=== PATIENT | female | born 1975 ===

== ENCOUNTER 2022-12-03 09:07 | Outpatient (AMB) | payer OTHER, SELFPAY ==
[2022-12-03 09:20] VITALS: BP 112/60; PULSE 71; TEMP 36.9; O2SAT 99; BMI 30.1
--- NOTE | 2022-12-03 09:20 | A.OFFPC_ITS ---
Vital Signs 12/03/22 09:20 Height 5 ft 3 in Weight 170 lb BMI 30.1 BP 112/60 Blood Pressure Location Lt brachial Position Sitting Pulse 71 Pulse Source Pulse Oximeter Temp 98.4 F Temp Source Oral Pulse Oximetry (%) 99 Oxygen Delivery Method Room Air Intake Visit Reasons: New patient-requesting physical Intake Note: Patient is a new patient, and would like to discuss colonoscopy. Allergies Sulfa (Sulfonamide Antibiotics) Allergy (Unknown, Verified 12/03/22 09:46) Unknown Medication List - Last Reconciled 12/03/22 by Lashaun Taylor CNP No Known Home Meds Tobacco use date assessed: 12/03/22 Dental Screening Dental Screen Date: 12/03/22 Did you have a dental visit in the last 12 months?: No Did you have a dental problem in the last 6 months where you did not have access to dental care?: No Was dental information given to patient?: No HPI HPI Comments History of Present Illness Details 46-year-old female presents to critical access hospital care She was last evaluated by her former PCP 8 years ago. She notes she had routine blood work done 4 years ago She reports history of seasonal depression for which she was on Wellbutrin. 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 She states she also gets depressed during the winter months. She requests to resume Wellbutrin. She admits to exercising routinely and maintaining healthy diet. Not on prescription medications No acute symptoms today She states she is followed by [facility]; her last pap smear test was July 2022: normal He notes her last mammogram and left breast biopsy was 2022: normal. She has a f/u appointment in March 2023 She states she has not had colonoscopy and requests referral for this. FH: Father: prediabetes, HTN, bladder and prostate cancer Mother: HTN, osteoporosis MGM: of breast cancer [facility] Surgical History (Updated 12/03/22 @ 09:26 by Lorena Cartagena CMA) H/O breast biopsy Family History (Updated 12/03/22 @ 09:29 by Lorena Cartagena CMA) Father Bladder cancer Prostate cancer Maternal Grandmother Breast cancer Social History (Updated 12/03/22 @ 09:31 by Lorena Cartagena CMA) Household Members: Spouse Housing: House Alcohol intake: former Patient Tobacco Use Status: Former Tobacco user e-Cigarette/Vaping Use: Never Used Special lanette needs: No service: No Current occupational status: employed Current occupation: relator Cognitive needs: No Hearing needs: No Vision needs: No Questionnaire PHQ-9 Over the last 2 weeks, how often have you been bothered by any of the following problems? 1. Little interest or pleasure in doing things: not at all 2. Feeling down, depressed, or hopeless: not at all 3. Trouble falling or staying asleep, or sleeping too much: not at all 4. Feeling tired or having little energy: not at all 5. Poor appetite or overeating: not at all 6. Feeling bad about yourself - or that you are a failure or have let yourself or your family down: not at all 7. Trouble concentrating on things, such as reading the newspaper or watching television: not at all 8. Moving or speaking so slowly that other people could have noticed. Or the opposite - being so fidgety or restless that you have been moving around a lot more than usual: not at all 9. Thoughts that you would be better off or of hurting yourself in some way: not at all Total score: 0 Depression Screening Interpretation: Negative Source: Developed by Drs. Bud Jimenez, Isabel Munoz, Ilan Hamilton and colleagues, with an educational azucena from [employer]. Thrive Questionnaire I am a: Patient What is your living situation today?: I have a steady place to live Within the past 12 months, did the food you bought not last and you didn't have the money to get more?: Never true Within the past 12 months, did you worry whether your food would run out before you got money to buy more?: Never true Do you have trouble paying for medicines?: No Do you have trouble getting transportation to medical appointments?: No Do you have trouble paying your heating and electricity bill?: No Do you have trouble taking care of your child, family member or friend?: No Do you have trouble with day-to-day activities such as bathing, preparing meals, shopping, managing finances, etc.?: No Are you currently unemployed and looking for a job?: No Are you interested in more education?: No AUDIT C Alcohol Use Questionnaire (AUDIT-C) 1. How often do you have a drink containing alcohol?: Never 3. How often do you have six or more drinks on one occasion?: Never Total Score: 0 NINOSKA-7 AMB Questionnaire NINOSKA-7 Feeling nervous, anxious, or on edge: 0 = Not at all Not being able to stop or control worryin = Not at all Worrying too much about different things: 0 = Not at all Trouble relaxin = Not at all Being so restless that it is hard to sit still: 0 = Not at all Becoming easily annoyed or irritable: 0 = Not at all Feeling afraid as if something awful might happen: 0 = Not at all Total NINOSKA-7 score (0-4 normal; 5-9 mild; 10-14 moderate; 15-21 severe): 0 Source: Developed by Drs. Bud Jimenez, Isabel Munoz, Ilan Hamilton and colleagues, with an educational azucena from [employer]. ACT Questionnaire In the past 4 weeks, how much of the time did your asthma keep you from getting as much done at work, school or at home?: None of the time During the past 4 weeks, how often have you had shortness of breath?: Not at all During the past 4 weeks, how often did your asthma symptoms wake you up at night or earlier than usual in the morning?: Not at all During the past 4 weeks, how often have you had to use your rescue inhaler or nebulizer medication?: Not at all How would you rate your asthma control during the past 4 weeks?: Completely controlled Score: 25 Review of Systems Const Details: Denies chills, Denies fatigue, Denies fever(s), Denies headache(s) and Denies weakness HEENT Denies change in vision, Denies dizziness, Denies headache(s), Denies hearing loss, Denies nasal congestion, Denies sinus pain, Denies sinus pressure and Denies sore throat Card Denies chest pain, Denies lightheadedness, Denies dyspnea and Denies other (palpitations) Resp Denies cough, Denies dyspnea and Denies wheezing GI Denies abdominal pain, Denies melena, Denies hematochezia, Denies change in bowel habits, Denies dyspepsia and Denies nausea Denies hematuria and Denies dysuria Musc Denies abnormal gait, Denies myalgias, Denies arthralgias, Denies numbness and Denies tingling Skin/Breast Denies rash, Denies unusual bruising and Denies wounds Neuro Denies abnormal gait, Denies dizziness, Denies headache(s), Denies memory loss, Denies numbness, Denies Sensory deficit (Neuro), Denies tingling and Denies weakness Psych Denies anxiety, Denies depression and Denies memory loss Endo Denies cold intolerance, Denies fatigue, Denies heat intolerance, Denies polydipsia and Denies polyuria Saroj/Lymph Denies easy bleeding and Denies easy bruising Aller/Immun Denies wheezing Physical exam (Primary Care) Vital Signs: Last Vital Signs Temp 98.4 F 12/03/22 09:20 Pulse 71 12/03/22 09:20 BP 112/60 12/03/22 09:20 Pulse Ox 99 12/03/22 09:20 Oxygen Delivery Method Room Air 12/03/22 09:20 Tobacco/Smoking Status: Tobacco use Status Tobacco use date assessed 12/03/22 12/03/22 09:40 Patient Tobacco Use Status Former Tobacco user 12/03/22 09:40 e-Cigarette/Vaping Use Never Used 12/03/22 09:40 PHQ-9: PHQ-9 Score PHQ-9: Total score 0 12/03/22 09:49 Depression Screening Interpretation: Negative Const Other: General: no acute distress, well developed, alert and awake Nutritional Appearance: well nourished Orientation/consciousness: patient oriented x3 HENMT Head: Yes normocephalic and Yes atraumatic Ears: hearing grossly normal bilaterally and TM's normal bilaterally General nose exam: Normal external nose present and Normal nares present Mouth: Normal oral and palatal mucosa present and moist mucous membranes Teeth and gingiva: dentition normal Throat: Yes oropharynx normal Eyes Pupils: Equal, round and reactive pupils present and Pupil accommodation reflex normal EOM: EOMs intact bilaterally Neck Neck: Yes normal visual inspection, Yes no lymphadenopathy and Yes trachea midline Thyroid: Thyroid normal Carotids: no bruits Lymphatic: no lymphadenopathy noted Chest Chest palpation & inspection: normal inspection of the chest Resp Effort & Inspection: normal respiratory effort Auscultation: clear to auscultation bilaterally Cardio Rate: regular rate Rhythm: regular rhythm Heart sounds: S1 normal heart sound present, S2 normal heart sound present, no gallops, no murmurs and no rubs Bruits: no abdominal aortic bruits and no carotid bruits GI Palpation (GI): No Abdominal aortic bruit present, Soft to palpation, nontender, No hepatosplenomegaly present and No Rebound tenderness present Auscultation: normal bowel sounds General: Yes no CVA tenderness Back/Spine/Pelvis Back: no CVA tenderness Cervical Spine: cervical ROM normal and No Cervical spine tenderness Thoracic/Lumbar Spine: thoraco-lumbar ROM normal, No pain with thoraco-lumbar ROM, No thoracic spinal tenderness and No lumbar spinal tenderness Skin General: warm and dry. Normal skin color. Normal skin turgor Lesions: no lesions Rashes: no rashes Trauma: no lacerations or abrasions Wounds: no wounds Nails: normal Neuro General: patient oriented x3, gait normal and CN's II-XI intact bilaterally Cranial nerves: Yes Equal, round and reactive pupils present Cognition (Neuro): normal cognition Gait exam (Neuro): Normal gait present Motor exam (neuro): 5/5 motor strength present throughout Sensory Exam: No Sensory deficit (Neuro) Deep tendon reflexes (DTR's): Right patellar reflex intensity grade: 2+ and Left patellar reflex intensity grade: 2+ Extrem General: Yes normal to inspection, No edema and No calf tenderness Psych Appearance: grossly normal Affect: normal affect Attitude: cooperative Thought process: Normal thought process present Assessment and Plan Assessment & Plan (1) Normal physical examination, routine: Code(s): Z00.00 - Encounter for general adult medical examination without abnormal findings Plan: No significant physical restrictions or limitations noted Encouraged to get fasting blood work done and schedule a telehealth visit for lab review Follow-up with concerns or symptoms Verbalized understanding and agreed with the plan. (2) Seasonal depression: Code(s): F33.8 - Other recurrent depressive disorders Plan: Reports history of seasonal depression for which she was on Wellbutrin. 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 She states she also gets depressed during the winter months. She requests to resume Wellbutrin. Wellbutrin ordered. Take as prescribed Routine exercise encouraged Follow-up with worsening or new symptoms Verbalized understanding and agreed with treatment plan. (3) Colon cancer screening: Code(s): Z12.11 - Encounter for screening for malignant neoplasm of colon Plan: She states she has not had colonoscopy and requests referral for this GI referral made (4) Laboratory tests ordered as part of a complete physical exam (CPE): Code(s): Z00.00 - Encounter for general adult medical examination without abnormal findings Plan: Fasting labs ordered as part of a complete physical exam. Advised to fast for at least 10 hours before getting labs drawn. May drink water Verbalized understanding and agreed with treatment plan. Orders: Orders Comprehensive [place]. Panel Fast Today Z00.00 - Encounter for general adult medical examination without abnormal findings Lipid Panel Today Z00.00 - Encounter for general adult medical examination without abnormal findings TSH reflex Free T4 Today Z00.00 - Encounter for general adult medical examination without abnormal findings Complete Blood Count Auto Diff Today Z00.00 - Encounter for general adult medical examination without abnormal findings UA CC w/rflx Micro + Cult Today Z00.00 - Encounter for general adult medical examination without abnormal findings Referrals Gastroenterology Referral Z00.00 - Encounter for general adult medical examination without abnormal findings, Z12.11 - Encounter for screening for malignant neoplasm of colon Medications: New bupropion HCl (Wellbutrin XL) 150 mg PO QAM 90 tabs 1RF 90 days Coding Level of Care Code New Pt Prev Care 40-64y(39836) Diagnoses Normal physical examination, routine Z00.00 Seasonal depression F33.8 Colon cancer screening Z12.11 Laboratory tests ordered as part of a complete physical exam (CPE) Z00.00
== END 2022-12-03 10:14 | disposition home or self-care (01) ==
PROVIDERS: PCP Nurse Practitioner Family; Visit Provider Nurse Practitioner Family
DX: Z00.00 Encounter for general adult medical examination without abnormal findings (principal); F33.8 Other recurrent depressive disorders; Z12.11 Encounter for screening for malignant neoplasm of colon
CPT/HCPCS: 99386

== ENCOUNTER 2022-12-10 10:24 | Outpatient (REF) | payer OTHER, SELFPAY ==
[2022-12-10 14:20] LABS: MANUAL DIFF FLAG NO
[2022-12-10 14:35] LABS: Basophils Percent Auto 0.4 % (0-2); Eosinophils Absolute Auto 0.1 X10*3/uL (0.0-0.4); Eosinophils Percent Auto 2.8 % (0-4); Hemoglobin 13.4 g/dl (12.0-16.0); Imm Gran Abs Auto 0.01 X10*3/uL (0.00-0.03); Imm Gran Pct Auto 0.2 % (0.0-0.4); Lymphocytes Absolute Auto 1.3 X10*3/uL (1.2-4.9); Lymphocytes Percent Auto 28.6 % (20-40); Mean Corpuscular HGB Conc 33.5 g/dl (31.0-35.0); Mean Corpuscular Hemoglobin 30.7 pg (27.0-33.0); Mean Corpuscular Volume 91.7 fL (80.0-98.0); Mean Platelet Volume 11.6 fL (9.4-12.3); Monocytes Absolute Auto 0.4 X10*3/uL (0.1-1.2); Monocytes Percent Auto 9.1 % (2-11); Neutrophils Absolute Auto 2.7 x10*3/uL (2.0-8.3); Neutrophils Percent Auto 58.9 % (45-73); Platelet Count 226 X10*3/uL (160-400); Red Blood Count 4.36 X10*6/uL (4.20-5.50); Red Cell Distribution Width 13.3 % (11.0-16.0); White Blood Count 4.6 X10*3/uL (4.8-10.8)
[2022-12-10 15:30] LABS: Alanine Aminotransferase 13 U/L (0-31); Albumin Level 3.9 g/dL (3.5-5.0); Alkaline Phosphatase 47 U/L (39-117); Anion Gap 9 (12-20); Aspartate Amino Transferase 16 U/L (5-31); Bilirubin Total 0.4 mg/dL (0.0-1.0); Blood Urea Nitrogen 8 mg/dL (9-16); Calcium 9.1 mg/dL (8.4-10.2); Carbon Dioxide 26 mmol/L (22-29); Chloride 106 mmol/L (96-108); Cholesterol 200 mg/dL; Estimated Glomerular Filt Rate > 60; Glucose Fasting 83 mg/dL (60-99); HDL Cholesterol 76 mg/dL; LDL Cholesterol Calculated 116 mg/dl; Potassium 4.1 mmol/L (3.3-5.1); Sodium 137 mmol/L (135-145); Total Protein 6.8 g/dL (6.5-8.0); Triglycerides 44 mg/dL
[2022-12-10 15:47] LABS: TSH reflex Free T4 1.51 uIU/mL (0.32-4.0)
== END 2022-12-10 10:25 | disposition home or self-care (01) ==
LOC: HO.WFDLDS 10:24
PROVIDERS: Visit Provider Nurse Practitioner Family
DX: Z00.00 Encounter for general adult medical examination without abnormal findings (principal)
CPT/HCPCS: 36415; 80053; 80061; 84443; 85025

== ENCOUNTER 2022-12-15 | Outpatient (REF) | payer OTHER, SELFPAY ==
[2022-12-16 12:01] LABS: Appearance Urine Clear; Color Urine Yellow; Glucose Urine UA Negative (Negative); Leukocyte Esterase Urine Negative (Negative); Nitrite Urine Negative (Negative); Specific Gravity - Urine 1.015 (1.005-1.025); Urine Blood Negative (Negative); Urine Ketones Trace mg/dL (Negative); Urine Protein Negative (Neg-Trace)
== END 2022-12-15 00:01 | disposition home or self-care (01) ==
LOC: HO.LNP
PROVIDERS: Visit Provider Nurse Practitioner Family
DX: Z00.00 Encounter for general adult medical examination without abnormal findings (principal)
CPT/HCPCS: 81003

== ENCOUNTER 2022-12-15 15:44 | Outpatient (AMB) | payer OTHER, SELFPAY ==
[2022-12-15 15:49] VITALS: BP 112/74; PULSE 70; RESP 16; TEMP 36.8; O2SAT 99; BMI 30.7
--- NOTE | 2022-12-15 15:49 | MHC.PC.OV ---
Vital Signs 12/15/22 15:49 Height 5 ft 3 in Weight 173 lb 8 oz BMI 30.7 BP 112/74 Blood Pressure Location Lt brachial Position Sitting Respiration 16 Pulse 70 Pulse Source Pulse Oximeter Temp 98.3 F Temp Source Oral Pulse Oximetry (%) 99 Oxygen Delivery Method Room Air Intake Visit Reasons: weight management Intake Note: Patient is here for weight management. Allergies Sulfa (Sulfonamide Antibiotics) Allergy (Unknown, Verified 12/15/22 16:10) Unknown Medication List - Last Reconciled 12/15/22 by Lashaun Talyor CNP bupropion HCl (Wellbutrin XL) 150 mg PO QAM 90 days Tobacco use date assessed: 12/15/22 Dental Screening Dental Screen Date: 12/15/22 Did you have a dental visit in the last 12 months?: Yes Did you have a dental problem in the last 6 months where you did not have access to dental care?: No Was dental information given to patient?: Patient declined HPI HPI Comments History of Present Illness Details 46-year-old female presents for weight management follow-up. Her goal is to lose 20 lb. No acute symptoms today. She denies history of pancreatitis or a personal or family history of medullary thyroid cancer or multiple endorcine neoplasia. PFSH Surgical History H/O breast biopsy Family History Father Bladder cancer Prostate cancer Maternal Grandmother Breast cancer Social History Household Members: Spouse Housing: House Alcohol intake: former Patient Tobacco Use Status: Former Tobacco user e-Cigarette/Vaping Use: Never Used Special lanette needs: No service: No Current occupational status: employed Current occupation: realtor Current occupational exposures/hazards: Yes Cognitive needs: No Hearing needs: No Vision needs: No Review of Systems Const Details: Const Denies chills, Denies fatigue, Denies fever(s), Denies headache(s) and Denies weakness ENT Denies dizziness and Denies headache(s) Card Denies chest pain, Denies lightheadedness, Denies dyspnea and Denies other (Palpitations) Resp Denies cough, Denies dyspnea, Denies wheezing and Denies other ( shortness of breath) GI Denies abdominal pain, Denies melena, Denies hematochezia, Denies change in bowel habits, Denies dyspepsia and Denies nausea Denies hematuria and Denies dysuria Musc Denies abnormal gait, Denies myalgias, Denies arthralgias, Denies numbness and Denies tingling Skin/Breast Denies rash, Denies unusual bruising and Denies wounds Neuro Denies abnormal gait, Denies dizziness, Denies headache(s), Denies memory loss, Denies numbness, Denies Sensory deficit (Neuro), Denies tingling and Denies weakness Psych Denies anxiety, Denies depression, Denies memory loss Endo Denies cold intolerance, Denies fatigue, Denies heat intolerance, Denies polydipsia and Denies polyuria Aller/Immun Denies wheezing Physical exam (Primary Care) Vital Signs: Last Vital Signs Temp 98.3 F 12/15/22 15:49 Pulse 70 12/15/22 15:49 Resp 16 12/15/22 15:49 BP 112/74 12/15/22 15:49 Pulse Ox 99 12/15/22 15:49 Oxygen Delivery Method Room Air 12/15/22 15:49 BMI result Body Mass Index 30.7 Tobacco/Smoking Status: Tobacco use Status Tobacco use date assessed 12/15/22 12/15/22 15:58 Patient Tobacco Use Status Former Tobacco user 12/15/22 15:58 e-Cigarette/Vaping Use Never Used 12/15/22 15:58 Const Other: General: no acute distress and well developed Nutritional Appearance: well nourished Orientation/consciousness: patient oriented x3 HENMT Head: Yes normocephalic and Yes atraumatic Eyes General: appearance normal, both eyes and all related structures Pupils: Equal, round and reactive pupils present EOM: EOMs intact bilaterally Resp Effort & Inspection: normal respiratory effort Auscultation: clear to auscultation bilaterally Cardio Rate: regular rate Rhythm: regular rhythm Heart sounds: S1 normal heart sound present, S2 normal heart sound present, no gallops, no murmurs and no rubs GI Palpation (GI): No Abdominal aortic bruit present, Soft to palpation, nontender, No hepatosplenomegaly present and No Rebound tenderness present Auscultation: normal bowel sounds General: Yes no CVA tenderness Back/Spine/Pelvis Back: no CVA tenderness Cervical Spine: cervical ROM normal and No Cervical spine tenderness Thoracic/Lumbar Spine: thoraco-lumbar ROM normal, No pain with thoraco-lumbar ROM, No thoracic spinal tenderness and No lumbar spinal tenderness Extrem General: Yes normal to inspection, No edema and No calf tenderness Skin General: warm and dry. Normal skin color. Normal skin turgor Lesions: no lesions Rashes: no rashes Trauma: no lacerations or abrasions Wounds: no wounds Nails: normal Neuro General: patient oriented x3, gait normal and no focal neuro deficit Cranial nerves: Yes Equal, round and reactive pupils present Cognition (Neuro): normal cognition Gait exam (Neuro): Normal gait present Sensory Exam: No Sensory deficit (Neuro) Psych Appearance: grossly normal Affect: normal affect Attitude: cooperative Thought process: Normal thought process present Results AMB Hemoglobin A1c AMB Hemoglobin A1c 5.3 % Last Edit by Nory Lee on 12/15/22 16:22 Assessment and Plan Assessment & Plan (1) Obesity (BMI 30.0-34.9): Code(s): E66.9 - Obesity, unspecified Plan: Her BMI today is 30.7 lb A1c is 5.3% today Semaglutide ordered for weight loss. Take as prescribed Healthy diet and routine exercise encouraged Follow-up in 1 month or return sooner with concerns or symptoms Verbalized understanding and agreed with treatment plan. Medications: New semaglutide (weight loss) (Wemonavharris) administer weeks 1 through 4 of therapy 0.25 mg (0.5 mL) subcut QWEEK 4 weeks 2 mL 0RF Coding Level of Care Code Est Pt Level 3 (08609) Diagnoses Obesity (BMI 30.0-34.9) E66.9 Time Spent (min) 25
== END 2022-12-15 16:22 | disposition home or self-care (01) ==
PROVIDERS: PCP Nurse Practitioner Family; Visit Provider Nurse Practitioner Family
DX: E66.9 Obesity, unspecified (principal); Z68.30 Body mass index [BMI] 30.0-30.9, adult
CPT/HCPCS: 83036; 99213

== ENCOUNTER 2022-12-30 13:08 | Outpatient (AMB) | payer OTHER, SELFPAY ==
--- OUTSIDE RECORDS SUMMARY | 2022-12-30 13:09 | XMS_ITS | Continuity of Care Document ---
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 Name Role Phone Herman Fischer DO Primary Care Physician Encounter [facility] Date(s): 09/09/22 - 10/30/[address] [id number] Attending Physician: Estelle Moyer CNM Admitting Physician: Estelle Moyer CNM Referring Physician: Estelle Moyer CNM Allergies, Adverse Reactions, Alerts Substance Reaction Severity Status sulfa drugs rash Active Immunizations Given and Recorded Vaccine Date Status Refusal Reason influenza virus vaccine, inactivated 04/24/16 Give n Medications 22 g x 1 1/2 inch needle 22 g x 1 1/2 inch needle, See Instructions, # 30 each, Refills 5, Tot. Refills 5, Maintenance, To use to inject Daily Progesterone, 10/05/18 14:39:37 EDT, Compound Start Date: 10/05/18 Status: Ordered 3 ml syringe with 18 g x 11/2 inch needle 3 ml syringe with 18 g x 11/2 inch needle, See Instructions, # 30 each, Refills 5, Tot. Refills 5, Maintenance, To use to draw up Progesterone, 10/05/18 14:40:04 EDT, Compound Start Date: 10/05/18 Status: Ordered Lovenox 40 mg/0.4 mL injectable solution = 40 mg, Subcutaneous Injection, Daily, # 30 each, 4 Refills, Maintenance, 10/26/18 12:43:30 EDT Start Date: 10/26/18 Status: Ordered Lupron Depot 3.75 mg intramuscular kit See Instructions, Intramuscular Every 28 days, # 1 kit, 3 Refills, Maintenance, 04/13/18 14:52:35 EST Start Date: 04/13/18 Status: Ordered Medrol 16 mg oral tablet 1 tablet = 16 mg, By Mouth, Daily at bedtime, Begin 10/20/if instructed to do so., # 4 tablet, 1 Refills, Maintenance, 10/05/18 14:42:15 EDT Start Date: 10/05/18 Status: Ordered Multivitamin Tablet ([id number]), 0 Refills, Maintenance, 11/05/16 14:25:20 Start Date: 11/05/16 Status: Ordered progesterone 50 mg/mL intramuscular solution = 50 mg, Intramuscular, Daily, # 3 vials, 5 Refills, Maintenance, 10/05/18 14:38:58 EDT Start Date: 10/05/18 Status: Ordered Vitamin D3 oral tablet 2 tablet = 800 International_Units, By Mouth, Daily, 0 Refills, Maintenance, 09/16/17 9:40:12 EDT Start Date: 09/16/17 Status: Ordered Vivelle-Dot 0.1 mg/24 hours twice weekly transdermal film, extended release See Instructions, Apply 4 patches and change QOD. Please refer to calendar., # 40 patch, 5 Refills, Maintenance, 10/05/18 14:38:16 EDT, Needs IRENE. Start Date: 10/05/18 Status: Ordered Problem List Condition Confirmation Course Effective Dates Status Health St atus Informant AMA (advanced maternal age) primigravida 35+ Confirmed Active Infertility, female Confirmed Active Social History Social History Type Response Smoking Status Former smoker; Other : Quit April 2015; entered on: 04/24/16 Sex Patient Care team information Care Team Personnel Name: Herman Fischer DO Position: Reference Physician Member Role: PCP Address: Address: [address] [facility] [place] [address]- Care Team Related Persons Name: KAMERON SCHULTZ Address: home [address] [place] [address]
--- NOTE | 2022-12-30 13:14 | A.OFFVIS_ITS ---
Intake Vital Signs 12/30/22 13:20 Height 5 ft 3 in Weight 173 lb BMI 30.6 BP 119/68 Blood Pressure Location Lt brachial Position Sitting Pulse 73 Intake Visit Reasons: Colonoscopy screening Intake Note: New consult for 1st pre colonoscopy screening. Patient denies any GI issues. Employment Service Specialist Required: No Accompanied by: Self / Same As Patient Allergies Sulfa (Sulfonamide Antibiotics) Allergy (Unknown, Verified 12/30/22 13:16) Unknown HPI HPI Comments History of Present Illness Details A 47 y/o female referred index screening- Good appetite Normal bowel pattern No Family hx- GI cancers No N/V/D- abdominal pain- fever or chills PFSH Surgical History H/O breast biopsy Family History Father Bladder cancer Prostate cancer Maternal Grandmother Breast cancer Social History Household Members: Spouse Housing: House Alcohol intake: former Patient Tobacco Use Status: Former Tobacco user e-Cigarette/Vaping Use: Never Used Special lanette needs: No service: No Current occupational status: employed Current occupation: realtor Current occupational exposures/hazards: Yes Cognitive needs: No Hearing needs: No Vision needs: No Review of Systems Const All systems reviewed & are unremarkable except as noted in HPI and below Card Denies chest pain and Denies dyspnea Resp Denies dyspnea GI Denies abdominal pain, Denies hematochezia, Denies change in bowel habits, Denies dyspepsia and Denies vomiting Physical Exam Vital Signs: Last Vital Signs Pulse 73 12/30/22 13:20 BP 119/68 12/30/22 13:20 BMI result Body Mass Index 30.6 Const General: cooperative, healthy appearing, comfortable and no acute distress Orientation/consciousness: patient oriented x3 Limitations: no limitations Eyes Sclerae: sclerae normal Resp Effort & Inspection: normal respiratory effort and able to speak in complete sentences Auscultation: clear to auscultation bilaterally, no crackles, no rales and no rhonchi Cardio Rate: regular rate Rhythm: regular rhythm Heart sounds: S1 normal heart sound present and S2 normal heart sound present GI Palpation (GI): Soft to palpation and nontender Auscultation: normal bowel sounds Skin General skin exam: no rashes or lesions noted and other (suntanned) Neuro General: patient oriented x3 Extrem General: Yes full ROM Psych Appearance: grossly normal and well kempt Mental Status: mental status grossly normal Speech and movement: Normal speech and movement present Affect: normal affect Attitude: cooperative Thought process: Normal thought process present Thought content: Normal thought content present Insight: Good insight present (Psych) Results Reviewed Results Reviewed: labs 12/10- Assessment & Plan Assessment & Plan (1) Colon cancer screening: Code(s): Z12.11 - Encounter for screening for malignant neoplasm of colon Plan: screening colon Plan Index screening colonoscopy MG prep Orders: Orders Colonoscopy - GI Use Only 12/30/22 Z12.11 - Encounter for screening for malignant neoplasm of colon Medications: New bisacodyl (Dulcolax (bisacodyl)) Take 4 tablets by mouth at 12:00pm the day before your procedure. 20 mg (4 x 5 mg) PO ONCE 1 day 4 tabs 0RF colonoscopy prep Z12.11 - Encounter for screening for malignant neoplasm of colon polyethylene glycol 3350 (Miralax) Take as directed by mouth the day before your procedure. 238 grams PO ONCE 1 day PRN 238 grams 0RF laxative effect Patient Instructions: A very pleasant 47 y/o female referred index screening colonoscopy- no Gi or general complaints. Index screening colonoscopy- discussed rare risks, need for escort and MG split prep lit given Encouraged to call with questions or concerns Coding Level of Care Code New Pt Level 3 (36076) Diagnoses Colon cancer screening Z12.11 Time Spent (min) 30
[2022-12-30 13:20] VITALS: BP 119/68; PULSE 73; BMI 30.6
== END 2022-12-30 14:00 | disposition home or self-care (01) ==
LOC: HO.HGIW 13:08
PROVIDERS: PCP Nurse Practitioner Family; Visit Provider Physician Assistant
DX: Z01.818 Encounter for other preprocedural examination (principal); Z12.11 Encounter for screening for malignant neoplasm of colon
CPT/HCPCS: 99203

== ENCOUNTER → 2022-12-30 13:08 | Outpatient (BNVA) | payer OTHER, SELFPAY | PROVIDERS: PCP Nurse Practitioner Family; Visit Provider Physician Assistant ==

== ENCOUNTER 2023-01-28 09:51 | Outpatient (AMB) | payer OTHER, SELFPAY ==
[2023-01-28 09:56] VITALS: BP 104/70; PULSE 80; RESP 12; TEMP 36.4; O2SAT 99; BMI 30.5
--- NOTE | 2023-01-28 09:56 | MHC.PC.OV ---
Vital Signs 01/28/23 09:56 Height 5 ft 3 in Weight 172 lb BMI 30.5 BP 104/70 Blood Pressure Location Lt brachial Position Sitting Respiration 12 Pulse 80 Pulse Source Pulse Oximeter Temp 97.5 F Temp Source Temporal Artery Scan Pulse Oximetry (%) 99 Oxygen Delivery Method Room Air Intake Visit Reasons: weight management Intake Note: Patient states that she hasnt gotten her Wegovy due to it being on back order. Patient states if there is something else she may get something as an alternative. Patient would also like to go over most recent blood work if there is time. Auxiliary Equipment Operator Required: No Accompanied by: Self / Same As Patient Allergies Sulfa (Sulfonamide Antibiotics) Allergy (Unknown, Verified 01/28/23 10:38) Unknown Medication List - Last Reconciled 01/28/23 by Lashaun Taylor CNP bisacodyl (Dulcolax (bisacodyl)) 20 mg (4 x 5 mg) PO ONCE 1 day bupropion HCl (Wellbutrin XL) 150 mg PO QAM 90 days polyethylene glycol 3350 (Miralax) 238 grams PO ONCE PRN 1 day semaglutide (weight loss) (Wegovy) 0.25 mg (0.5 mL) subcut QWEEK 4 weeks Tobacco use date assessed: 12/15/22 Dental Screening Dental Screen Date: 01/28/23 Did you have a dental visit in the last 12 months?: No Did you have a dental problem in the last 6 months where you did not have access to dental care?: No Was dental information given to patient?: Patient has dentist HPI HPI Comments History of Present Illness Details 47-year-old female presents for weight management follow-up. She was last seen in the office on 12/15/2022 for weight management. Semaglutide was prescribed. She notes she has not been taking the medication because it is back ordered. She is inquiring about a different with loss regimen. She denies acute symptoms at this time. [facility] Medical History No pertinent past medical history Surgical History H/O breast biopsy Family History Father Bladder cancer Prostate cancer Maternal Grandmother Breast cancer Social History Household Members: Spouse Housing: House Alcohol intake: former Patient Tobacco Use Status: Former Tobacco user e-Cigarette/Vaping Use: Never Used Special lanette needs: No service: No Current occupational status: employed Current occupation: realtor Current occupational exposures/hazards: Yes Cognitive needs: No Hearing needs: No Vision needs: No Review of Systems Const Details: Const Denies chills, Denies fatigue, Denies fever(s), Denies headache(s) and Denies weakness ENT Denies dizziness and Denies headache(s) Card Denies chest pain, Denies lightheadedness, Denies dyspnea and Denies other (Palpitations) Resp Denies cough, Denies dyspnea, Denies wheezing and Denies other ( shortness of breath) GI Denies abdominal pain, Denies melena, Denies hematochezia, Denies change in bowel habits, Denies dyspepsia and Denies nausea Denies hematuria and Denies dysuria Musc Denies abnormal gait, Denies myalgias, Denies arthralgias, Denies numbness and Denies tingling Skin/Breast Denies rash, Denies unusual bruising and Denies wounds Neuro Denies abnormal gait, Denies dizziness, Denies headache(s), Denies memory loss, Denies numbness, Denies Sensory deficit (Neuro), Denies tingling and Denies weakness Psych Denies anxiety, Denies depression, Denies memory loss Endo Denies cold intolerance, Denies fatigue, Denies heat intolerance, Denies polydipsia and Denies polyuria Aller/Immun Denies wheezing Physical exam (Primary Care) Vital Signs: Last Vital Signs Temp 97.5 F 01/28/23 09:56 Pulse 80 01/28/23 09:56 Resp 12 01/28/23 09:56 BP 104/70 01/28/23 09:56 Pulse Ox 99 01/28/23 09:56 Oxygen Delivery Method Room Air 01/28/23 09:56 BMI result Body Mass Index 30.5 Tobacco/Smoking Status: Tobacco use Status Tobacco use date assessed 12/15/22 01/28/23 10:03 Patient Tobacco Use Status Former Tobacco user 01/28/23 10:03 e-Cigarette/Vaping Use Never Used 01/28/23 10:03 Const Other: General: no acute distress and well developed Nutritional Appearance: well nourished Orientation/consciousness: patient oriented x3 [facility] Head: Yes normocephalic and Yes atraumatic Eyes General: appearance normal, both eyes and all related structures Pupils: Equal, round and reactive pupils present EOM: EOMs intact bilaterally Resp Effort & Inspection: normal respiratory effort Auscultation: clear to auscultation bilaterally Cardio Rate: regular rate Rhythm: regular rhythm Heart sounds: S1 normal heart sound present, S2 normal heart sound present, no gallops, no murmurs and no rubs GI Palpation (GI): No Abdominal aortic bruit present, Soft to palpation, nontender, No hepatosplenomegaly present and No Rebound tenderness present Auscultation: normal bowel sounds General: Yes no CVA tenderness Back/Spine/Pelvis Back: no CVA tenderness Cervical Spine: cervical ROM normal and No Cervical spine tenderness Thoracic/Lumbar Spine: thoraco-lumbar ROM normal, No pain with thoraco-lumbar ROM, No thoracic spinal tenderness and No lumbar spinal tenderness Extrem General: Yes normal to inspection, No edema and No calf tenderness Skin General: warm and dry. Normal skin color. Normal skin turgor Lesions: no lesions Rashes: no rashes Trauma: no lacerations or abrasions Wounds: no wounds Nails: normal Neuro General: patient oriented x3, gait normal and no focal neuro deficit Cranial nerves: Yes Equal, round and reactive pupils present Cognition (Neuro): normal cognition Gait exam (Neuro): Normal gait present Sensory Exam: No Sensory deficit (Neuro) Psych Appearance: grossly normal Affect: normal affect Attitude: cooperative Thought process: Normal thought process present Assessment and Plan Assessment & Plan (1) Obesity (BMI 30.0-34.9): Code(s): E66.9 - Obesity, unspecified Plan: She was prescribed semaglutide last month for weight loss. However, she has not been taking the medication due to nationwide on availability. Therefore, she has not lose any weight. She weighs 172 lb today, BMI is 30.5. She is on Wellbutrin for seasonal depressive symptoms. Informed that Wellbutrin may also form or weight loss. Advised to continue to take the medication as prescribed. Healthy diet and routine exercise encouraged Referred to edger tailer/dietitian and weight management Advised to inform her PCP if she is not contacted by edger tailer/dietitian or weight management within the next 2 week Recent labs reviewed with the patient. Lab results were unremarkable Advised to schedule a complete physical exam for next year Return with symptoms or concerns Verbalized understanding and agreed with treatment plan. Orders: Referrals Medical Weight Management Referral E66.9 - Obesity, unspecified Nutrition/Dietitian Referral E66.9 - Obesity, unspecified Coding Level of Care Code Est Pt Level 3 (13319) Diagnoses Obesity (BMI 30.0-34.9) E66.9
== END 2023-01-28 10:55 | disposition home or self-care (01) ==
PROVIDERS: PCP Nurse Practitioner Family; Visit Provider Nurse Practitioner Family
DX: E66.9 Obesity, unspecified (principal); Z68.30 Body mass index [BMI] 30.0-30.9, adult
CPT/HCPCS: 99213

== ENCOUNTER 2023-06-15 15:28 | Outpatient (AMB) | payer OTHER, SELFPAY ==
[2023-06-15 15:37] VITALS: BP 112/70; PULSE 75; RESP 13; TEMP 36.4; O2SAT 99; BMI 30.3
--- NOTE | 2023-06-15 15:37 | A.OFFPC_ITS ---
Vital Signs 06/15/23 15:37 06/15/23 16:03 06/15/23 16:06 06/15/23 16:09 Height 5 ft 3 in Weight 171 lb 2 oz BMI 30.3 BP 112/70 130/80 124/80 110/80 Blood Pressure Location Rt brachial Lt brachial Lt brachial Lt brachial Position Sitting Supine Sitting Standing Respiration 13 Pulse 75 Pulse Source Pulse Oximeter Temp 97.6 F Temp Source Temporal Artery Scan Pulse Oximetry (%) 99 Oxygen Delivery Method Room Air Intake Visit Reasons: dizzy spells Criminal Intelligence Analyst Required: No Accompanied by: self Allergies Sulfa (Sulfonamide Antibiotics) Allergy (Unknown, Verified 06/15/23 15:52) Unknown Medication List - Last Reconciled 06/15/23 by Lashaun Taylor CNP bisacodyl (Dulcolax (bisacodyl)) 20 mg (4 x 5 mg) PO ONCE 1 day bupropion HCl (Wellbutrin XL) 150 mg PO QAM 90 days polyethylene glycol 3350 (Miralax) 238 grams PO ONCE PRN 1 day Tobacco use date assessed: 06/15/23 Dental Screening Dental Screen Date: 06/15/23 Did you have a dental visit in the last 12 months?: Yes Did you have a dental problem in the last 6 months where you did not have access to dental care?: No Was dental information given to patient?: Patient has dentist HPI HPI Comments History of Present Illness Details 47-year-old female presents with complai nts of ?dizzy spell for the past 5 days. She notes spinning sensation and dizziness from lying to sitting or standing. Her symptoms are more pronounced when she is exercising at the gym. She also reports some lightheadedness. She states her symptoms coincided with her menstrual cycle which lasted 10 days instead of the usual 5-6 days. No pal pitations, chest pain, nausea, vomiting, or visual disturbances. No head injury or trauma. No acute symptoms at this time. [facility] Medical History Seasonal depression Surgical History H/O breast biopsy Family History (Updated 06/15/23 @ 15:44 by Alla Phipps MA) Father Bladder cancer Prostate cancer Maternal Grandmother Breast cancer Other Substance abuse Social History Household Members: Spouse Housing: House Alcohol intake: former Patient Tobacco Use Status: Former Tobacco user e-Cigarette/Vaping Use: Never Used Special lanette needs: No service: No Current occupational status: employed Current occupation: realtor Current occupational exposures/hazards: Yes Cognitive needs: No Hearing needs: No Vision needs: No Review of Systems Const Details: Const Denies chills, Denies fatigue, Denies fever(s), Denies headache(s) and Denies weakness ENT Denies dizziness and Denies headache(s) Card Denies chest pain, Denies lightheadedness, Denies dyspnea and Denies other (Palpitations) Resp Denies cough, Denies dyspnea, Denies wheezing and Denies other ( shortness of breath) GI Denies abdominal pain, Denies melena, Denies hematochezia, Denies change in bowel habits, Denies dyspepsia and Denies nausea Denies hematuria and Denies dysuria Musc Denies abnormal gait, Denies myalgias, Denies arthralgias, Denies numbness and Denies tingling Skin/Breast Denies rash, Denies unusual bruising and Denies wounds Neuro Denies abnormal gait, Denies dizziness, Denies headache(s), Denies memory loss, Denies numbness, Denies Sensory deficit (Neuro), Denies tingling and Denies weakness Psych Denies anxiety, Denies depression, Denies memory loss Endo Denies cold intolerance, Denies fatigue, Denies heat intolerance, Denies polydipsia and Denies polyuria Aller/Immun Denies wheezing Physical exam (Primary Care) Vital Signs: Last Vital Signs Temp 97.6 F 06/15/23 15:37 Pulse 75 06/15/23 15:37 Resp 13 06/15/23 15:37 BP 110/80 06/15/23 16:09 Pulse Ox 99 06/15/23 15:37 Oxygen Delivery Method Room Air 06/15/23 15:37 BMI result Body Mass Index 30.3 Tobacco/Smoking Status: Tobacco use Status Tobacco use date assessed 06/15/23 06/15/23 15:44 Patient Tobacco Use Status Former Tobacco user 06/15/23 15:44 e-Cigarette/Vaping Use Never Used 06/15/23 15:44 Const Other: General: no acute distress and well developed Nutritional Appearance: well nourished Orientation/consciousness: patient oriented x3 HENMT Head: Yes normocephalic and Yes atraumatic Eyes General: appearance normal, both eyes and all related structures Pupils: Equal, round and reactive pupils present EOM: EOMs intact bilaterally Resp Effort & Inspection: normal respiratory effort Auscultation: clear to auscultation bilaterally Cardio Rate: regular rate Rhythm: regular rhythm Heart sounds: S1 normal heart sound present, S2 normal heart sound present, no gallops, no murmurs and no rubs GI Palpation (GI): No Abdominal aortic bruit present, Soft to palpation, nontender, No hepatosplenomegaly present and No Rebound tenderness present Auscultation: normal bowel sounds General: Yes no CVA tenderness Back/Spine/Pelvis Back: no CVA tenderness Cervical Spine: cervical ROM normal and No Cervical spine tenderness Thoracic/Lumbar Spine: thoraco-lumbar ROM normal, No pain with thoraco-lumbar ROM, No thoracic spinal tenderness and No lumbar spinal tenderness Extrem General: Yes normal to inspection, No edema and No calf tenderness Skin General: warm and dry. Normal skin color. Normal skin turgor Neuro General: patient oriented x3, gait normal and no focal neuro deficit Cranial nerves: Yes Equal, round and reactive pupils present Cognition (Neuro): normal cognition Gait exam (Neuro): Normal gait present Sensory Exam: No Sensory deficit (Neuro) Psych Appearance: grossly normal Affect: normal affect Attitude: cooperative Thought process: Normal thought process present Assessment and Plan Assessment & Plan (1) Vertigo: Code(s): R42 - Dizziness and giddiness Plan: Reports spinning sensation and dizziness from lying to sitting or standing x 5 days Orthostatic hypotension from lying to standing Adequate hydration and diet encouraged Advised to change positions slowly from lying, sitting, and standing Will check CBC and CMP and make changes as needed Follow-up with worsening or new symptoms Verbalized understanding and agreed with treatment plan (2) Orthostatic hypotension: Code(s): I95.1 - Orthostatic hypotension Plan: As above Orders: Orders Complete Blood Count no Diff Today I95.1 - Orthostatic hypotension, R42 - Dizziness and giddiness Basic Metabolic Panel Today I95.1 - Orthostatic hypotension, R42 - Dizziness and giddiness Coding Level of Care Code Est Pt Level 4 (54931) Diagnoses Vertigo R42 Orthostatic hypotension I95.1
[2023-06-15 16:03] VITALS: BP 130/80
[2023-06-15 16:06] VITALS: BP 124/80
[2023-06-15 16:09] VITALS: BP 110/80
== END 2023-06-15 16:17 | disposition home or self-care (01) ==
PROVIDERS: PCP Nurse Practitioner Family; Visit Provider Nurse Practitioner Family
DX: R42 Dizziness and giddiness (principal); I95.1 Orthostatic hypotension
CPT/HCPCS: 99214

== ENCOUNTER 2023-06-16 12:18 | Outpatient (REF) | payer OTHER, SELFPAY ==
[2023-06-16 14:55] LABS: Hematocrit 38.4 % (37.0-47.0); Hemoglobin 12.7 g/dl (12.0-16.0); Mean Corpuscular HGB Conc 33.1 g/dl (31.0-35.0); Mean Corpuscular Hemoglobin 30.8 pg (27.0-33.0); Mean Platelet Volume 11.4 fL (9.4-12.3); Platelet Count 223 X10*3/uL (160-400); Red Blood Count 4.13 X10*6/uL (4.20-5.50); Red Cell Distribution Width 13.6 % (11.0-16.0); White Blood Count 5.5 X10*3/uL (4.8-10.8)
[2023-06-16 15:41] LABS: Anion Gap 9 (12-20); Blood Urea Nitrogen 8 mg/dL (9-16); Calcium 9.1 mg/dL (8.4-10.2); Carbon Dioxide 27 mmol/L (22-29); Chloride 106 mmol/L (96-108); Estimated Glomerular Filt Rate > 60; Glucose Random 85 mg/dL (60-115); Sodium 138 mmol/L (135-145)
== END 2023-06-16 12:19 | disposition home or self-care (01) ==
LOC: HO.WFDLDS 12:18
PROVIDERS: Visit Provider Nurse Practitioner Family
DX: I95.1 Orthostatic hypotension (principal); R42 Dizziness and giddiness
CPT/HCPCS: 36415; 80048; 85027

== ENCOUNTER 2023-09-08 06:30 | Day surgery (SDC) | payer OTHER, SELFPAY ==
[2023-04-16 08:35] VITALS: BMI 30.6
--- NOTE | 2023-09-07 08:46 | HO.ANESPROP2 ---
Documented by User: Danica Keller NP 09/07/23 08:47 HPI - Anesthesia Eval Consult details Narrative: 47yo F for Colonoscopy PMFSH Active Problems Active Problems: All Active Problems Orthostatic hypotension (Acute) Vertigo (Acute) Obesity (BMI 30.0-34.9) (Acute) Seasonal depression (Acute) Normal physical examination, routine (Acute) Colon cancer screening (Acute) Laboratory tests ordered as part of a complete physical exam (CPE) (Acute) Past Medical History Medical History (Updated 09/04/23 @ 15:21 by Elly Mcmanus RN) Orthostatic hypotension Seasonal depression Family History Family History (Updated 06/15/23 @ 15:44 by ELIZABETH Yuen) Father Bladder cancer Prostate cancer Maternal Grandmother Breast cancer Other Substance abuse Surgical History Surgical History H/O breast biopsy Social History Social History Household Members: Spouse Housing: House Alcohol intake: former Patient Tobacco Use Status: Former Tobacco user e-Cigarette/Vaping Use: Never Used Use of substances other than those prescribed or required for medical reasons: No Special lanette needs: No Are you DNR?: No Advance Directives: No Advance Directives Information Provided: Yes service: No Current occupational status: employed Current occupation: realtor Current occupational exposures/hazards: Yes Cognitive needs: No Hearing needs: No Vision needs: No Meds Allergies Allergy/AdvReac Type Severity Reaction Status Date / Time Sulfa (Sulfonamide Allergy Unknown Unknown Verified 09/08/23 06:39 Antibiotics) Home Medications ?Medication ?Instructions ?Recorded ?Confirmed ?Last Taken ?Type No Known Home Meds 09/08/23 09/08/23 Unknown History Exam Height,Weight and Vital Signs: Height 5 ft 3 in Weight 78.471 kg Pertinent Lab Results Pertinent Lab Results: Laboratory Tests 06/16/23 12:18 WBC 5.5 Hgb 12.7 Hct 38.4 Plt Count 223 Sodium 138 Potassium 4.0 Chloride 106 Carbon Dioxide 27 BUN 8 L Creatinine 0.76 Assessment and Plan Assessment Anesthesia Assessment: Chart Reviewed Documented by User: Alan Ramirez MD 09/08/23 07:25 PMF Past Medical History Medical History (Updated 09/04/23 @ 15:21 by Elly Mcmanus RN) Orthostatic hypotension Seasonal depression Family History Family History (Updated 06/15/23 @ 15:44 by ELIZABETH Yuen) Father Bladder cancer Prostate cancer Maternal Grandmother Breast cancer Other Substance abuse Family history of problems with anesthesia: No Surgical History Surgical History H/O breast biopsy History of Problems with Anesthesia: No Social History Social History Household Members: Spouse Housing: House Alcohol intake: former Patient Tobacco Use Status: Former Tobacco user e-Cigarette/Vaping Use: Never Used Use of substances other than those prescribed or required for medical reasons: No Special lanette needs: No Are you DNR?: No Advance Directives: No Advance Directives Information Provided: Yes service: No Current occupational status: employed Current occupation: realtor Current occupational exposures/hazards: Yes Cognitive needs: No Hearing needs: No Vision needs: No Meds Allergies Allergy/AdvReac Type Severity Reaction Status Date / Time Sulfa (Sulfonamide Allergy Unknown Unknown Verified 09/08/23 06:39 Antibiotics) Home Medications ?Medication ?Instructions ?Recorded ?Confirmed ?Last Taken ?Type No Known Home Meds 09/08/23 09/08/23 Unknown History Exam Airway Mallampati Class: II TM Dist: >3cm Neck ROM: Full Loose/Missing/Broken Teeth: No Heart: rrr Lungs: cta Assessment and Plan Assessment Anesthesia Assessment: Anesthesia Plan Discussed Final Anesthetic Review Family History of Problems with Anesthesia: No History of Problems with Anesthesia: No NPO: Yes ASA Class: II Final Preanesthetic Review: No Changes in Pt Med Stat, Meds/Allgs Chart Reviewed, Consent Obtained/Reviewed and Anes Risks/Benef Reviewed Patient Risk: Intermediate Procedure Risk: Intermediate Anesthetic Plan Anesthetic Plan: MAC: Disposition: Standard PACU
--- OUTSIDE RECORDS SUMMARY | 2023-09-08 06:32 | XMS_ITS | Continuity of Care Document ---
Author Organization [facility] ter Address [address] [place] [id number]- Care Team Providers Care Buffing Wheel Former Machine Name Role Phone Herman Fischer DO Primary Care Physician Encounter [facility] [place] Date(s): 12/19/22 - 04/29/[address] [id number] Attending Physician: Lashaun Taylor NP Admitting Physician: Lashaun Taylor NP Referring Physician: Lashaun Taylor NP Allergies, Adverse Reactions, Alerts Substance Reaction Severity [...] mg, By Mouth, Daily at bedtime, Begin 10/20/ instructed to do so., # 4 tablet, 1 Refills, Maintenance, 10/05/18 14:42:15 EDT Start Date: 10/05/18 Status: Ordered Multivitamin Tablet ([id number]), 0 Refills, Maintenance, 11/05/16 14:25:20 Start Date: [...] Physician Member Role: PCP Address: Address: [address] [facility] [place] [address]- Care Team Related Persons Name: KAMERON SCHULTZ Address: [address] [place] [address]
--- OUTSIDE RECORDS SUMMARY | 2023-09-08 06:32 | XMS_ITS | Continuity of Care Document ---
Author Organization [facility] ter Address [address] [place] [id number]- Care Team Providers Care Bag Loader Name Role Phone Herman Fischer DO Primary Care Physician [phone] [place] [facility] [place] - 07/24/[address] [address] Attending Physician: Estelle Moyer CNM Admitting Physician: [...] mg, By Mouth, Daily at bedtime, Begin instructed to do so., # 4 tablet, 1 Refills, Maintenance, 10/05/18 14:42:15 EDT Start Date: 10/05/18 Status: Ordered Multivitamin Tablet (Ohby-hlm-Qqxxuua), 0 Refills, Maintenance, 11/05/16 14:25:20 Start Date: [...] Reference Physician Member Role: PCP Address: Address: [address] [place] [address] [address] [facility] [place] [address]- Care Team Related Persons Name: KAMERON SCHULTZ Address: home [address] [place] [address]
[2023-09-08 06:49] VITALS: BP 127/86; PULSE 88; RESP 18; TEMP 36.2; O2SAT 98; BMI 30.3
--- NOTE | 2023-09-08 06:56 | PC.NURSE ---
pt with nonremoveable left chest dermal piercing, acrylic false nails on hands and toes, dr. cardoza aware ok'd. notified dr. rebolledo,
--- NOTE | 2023-09-08 07:00 | PC.NURSE ---
call #2 to lab regarding serum quant preg at this time
[2023-09-08] MEDS: Lactated Ringers 1,000 ML 100 ML IVCONT (07:10)
--- NOTE | 2023-09-08 07:35 | MHC.SHP ---
Pre-Procedural Eval Section A - 24 Hr Update-Section A only Date of Service: 09/08/23 Section B - Complete if H&P > 30 days Chief Complaint: Encounter for screening for malignant neoplasm of Relevant Family History (Specify if Yes): No Relevant Social History: None Present Medications: see Short Stay Collaborative assessment Medical History: Significant History (depression) History of Previous Operations: Relevant previous surgery/procedure and date(s) (H/O breast biopsy) Allergies: Allergies Allergy/AdvReac Type Severity Reaction Status Date / Time Sulfa (Sulfonamide Allergy Unknown Unknown Verified 09/08/23 06:39 Antibiotics) Review of Systems Sugical H&P ROS: Negative: Constitution, Cardiovascular, Respiratory, Neurological, Psychiatric, Hem-Onc, Allergic/Immunologic, Gastrointestinal, Genitourinary, Musculoskeletal, Integumentary, Endocrine and Eyes/Ears/Nose/Throat Exam Surgical H&P Exam: Normal: HEENT, Normal: Heart, Normal: Lungs, Normal: Extremities, Normal: Abdomen, Normal: Skin and Normal: Neurological Plan Diagnosis/Plan: Unchanged I have reviewed the history and physical and performed a pertinent physical examination on my patient. No changes have occurred unless specified. Time Spent With Patient Time: Total time managing care of this patient today ____ minutes.
--- NOTE | 2023-09-08 07:36 | P.OPN-COLO_ITS ---
Colonoscopy Operative Note Operative Note Date of Service: 09/08/23 Narrative: Operative Information Procedure Description: Colonoscopy Indication: screening Anesthesia: MAC COLONOSCOPY Instrument: Olympus variable stiffness pediatric scope 190L Colonoscopy Monitoring: Vital signs and clinical assessment, continuous EKG monitoring, Pulse oximetry, Carbon Dioxide monitoring and blood pressure monitoring were done throughout the procedure. Colon withdrawal time was 8 minutes. Procedure: The patient was placed in the left lateral decubitis position and pre-procedure medications were administered. After a digital rectal examination of the ano-rectum, the video colonoscope was inserted into the rectum and advanced through the colon to the cecum/TI. The colonoscope was slowly withdrawn in a retrograde panoramic fashion and the colon mucosa was carefully examined including a retroflexed view of the rectum. Findings and interventions are described below. Procedure Difficulty: easy Findings: Terminal Ileum-normal Cecum:normal right sided retrofelxion- normal Ascending Colon: normal Transverse Colon -normal Descending Colon:normal Sigmoid Colon: 6-8 mm sessile polyp removed with cold snare Rectum: Retroflexion with small internal hemorrhoids seen, grade I Anorectum - normal Intervention: cold snare Colon preparation: [place] Bowel Preparation Scale Right colon; 3 Transverse colon: 3 Left colon; 3 (0 = Unprepared colon segment with mucosa not seen due to solid stool that cannot be cleared. 1 = Portion of mucosa of the colon segment seen, but other areas of the colon segment not well seen due to staining, residual stool and/or opaque liquid. 2 = Minor amount of residual staining, small fragments of stool and/or opaque liquid, but mucosa of colon segment seen well. 3 = Entire mucosa of colon segment seen well with no residual staining, small fragments of stool or opaque liquid) Impression and Post Procedure Diagnosis: colon polyp internal hemorrhoids Plan: High fiber diet leaflet Avoid straining at stool, epsom salts and sitz bath, anusol supps or cream Repeat Colonoscopy in 5-7 years if adenomatous polyp, 10 yrs if non adenomatous or earlier if clinically indicated Above findings were reviewed with the patient and relevant handouts were provided if indicated.
[2023-09-08 07:44] LABS: UPreg QC Valid YES; Urine Pregnancy NEGATIVE (NEGATIVE)
[2023-09-08 07:51] LABS: HCG Quantitative < 2 mIU/mL
[2023-09-08 08:11] VITALS: BP 120/67; PULSE 70; RESP 16; TEMP 36.4; O2SAT 97
[2023-09-08 08:26] VITALS: BP 126/84; PULSE 76; RESP 18; TEMP 36.3; O2SAT 99
== END 2023-09-08 08:50 | disposition home or self-care (01) ==
PROVIDERS: Anesthesiology; Nurse Practitioner; PCP Nurse Practitioner Family; Visit Provider Internal Medicine Gastroenterology
PROC: 0DJD8ZZ Inspection of Lower Intestinal Tract, Via Natural or Artificial Opening Endoscopic (ICD-10-PCS; CPT 45378; principal; 2023-09-08 07:30)
DX: Z12.11 Encounter for screening for malignant neoplasm of colon (principal); D12.5 Benign neoplasm of sigmoid colon; K64.0 First degree hemorrhoids
CPT/HCPCS: 45385; 36415; 81025; 84702; 88305; J2704

== ENCOUNTER → 2023-09-08 06:30 | Outpatient (BNV) | payer OTHER, SELFPAY | PROVIDERS: PCP Nurse Practitioner Family; Visit Provider Internal Medicine Gastroenterology | DX: Z12.11 Encounter for screening for malignant neoplasm of colon (principal); D12.5 Benign neoplasm of sigmoid colon; K64.0 First degree hemorrhoids | CPT/HCPCS: 45385 ==

== ENCOUNTER 2023-09-23 09:29 | Outpatient (AMB) | payer OTHER, SELFPAY ==
--- NOTE | 2023-09-23 09:33 | MHC.OFFVIS ---
Vital Signs 09/23/23 09:36 Height 5 ft 3 in Weight 160 lb BMI 28.3 BP 114/67 Blood Pressure Location Lt brachial Position Sitting Pulse 66 Intake Visit Reasons: S/P [place]; Dr. Leblanc Intake Note: Patient follow up for Colonoscopy results. Patient denies any GI issues. Water Technician Required: No Accompanied by: Self / Same As Patient Allergies Sulfa (Sulfonamide Antibiotics) Allergy (Unknown, Verified 09/23/23 09:33) Unknown HPI Comments Details: A 47 yo female family history of colon polyps f/u after index screening with polypectomy , material and paternal side with history of colon polyps She has no GI or general c/o Appetite good, bowels are normal Reviewed procedure report, pathology and recommendation No nausea, vomiting, hematemesis, hematochezia fever or chills Travels- [facility] Medical History Orthostatic hypotension Seasonal depression Surgical History Hx of colonoscopy H/O breast biopsy Family History Father Bladder cancer Prostate cancer Maternal Grandmother Breast cancer Other Substance abuse Social History Household Members: Spouse Housing: House Alcohol intake: former Patient Tobacco Use Status: Former Tobacco user e-Cigarette/Vaping Use: Never Used Special lanette needs: No service: No Current occupational status: employed Current occupation: realtor Current occupational exposures/hazards: Yes Cognitive needs: No Hearing needs: No Vision needs: No Review of Systems Const Details: All systems reviewed and are Physical Exam Vital Signs: Last Vital Signs Pulse 66 09/23/23 09:36 BP 114/67 09/23/23 09:36 BMI result Body Mass Index 28.3 Const General: cooperative, healthy appearing, comfortable and no acute distress Orientation/consciousness: patient oriented x3 Limitations: no limitations Eyes Sclerae: sclerae normal Resp Effort & Inspection: normal respiratory effort and able to speak in complete sentences Neuro General: patient oriented x3 Extrem General: Yes full ROM Psych Appearance: grossly normal and well kempt Mental Status: mental status grossly normal Affect: normal affect Attitude: cooperative Thought process: Normal thought process present Thought content: Normal thought content present Insight: Good insight present (Psych) Judgement: Good judgement present (Psych) Results Reviewed Results Reviewed: Impression and Post Procedure Diagnosis: colon polyp-adenomatous serrated internal hemorrhoids Plan: High fiber diet leaflet Avoid straining at stool, epsom salts and sitz bath, anusol supps or cream Repeat Colonoscopy in 5-7 years if adenomatous polyp, 10 yrs if non adenomatous or earlier if clinically indicated Assessment & Plan Assessment & Plan (1) Serrated polyp of colon: Comment: Diagnosis Colon, sigmoid, polypectomy: Tubular adenoma; negative for high-grade dysplasia or carcinoma. Code(s): K63.5 - Polyp of colon Category: Medical Plan: 5 year repeat colonoscopy (2) Internal hemorrhoids: Code(s): K64.8 - Other hemorrhoids Category: Medical Plan: Avoid straining Maintain high-fiber diet Patient Instructions: 5 year repeat polyp surveillance colonoscopy All first-degree relatives should begin screening at age 37 Maintain high-fiber Avoid straining with hemorrhoid Encouraged to call questions or concerns Coding Level of Care Code Est Pt Level 3 (73071) Diagnoses Serrated polyp of colon K63.5 Internal hemorrhoids K64.8 Time Spent (min) 30
[2023-09-23 09:36] VITALS: BP 114/67; PULSE 66; BMI 28.3
== END 2023-09-23 10:14 | disposition home or self-care (01) ==
PROVIDERS: PCP Nurse Practitioner Family; Visit Provider Physician Assistant
DX: K63.5 Polyp of colon (principal); K64.8 Other hemorrhoids
CPT/HCPCS: 99213

== ENCOUNTER → 2023-09-23 09:29 | Outpatient (BNVA) | payer OTHER, SELFPAY | PROVIDERS: PCP Nurse Practitioner Family; Visit Provider Physician Assistant | DX: K63.5 Polyp of colon (principal); K64.8 Other hemorrhoids | CPT/HCPCS: 99212 ==

== ENCOUNTER 2023-12-25 08:39 | Outpatient (AMB) | payer OTHER, SELFPAY ==
--- NOTE | 2023-12-25 08:42 | MHC.PC.OV ---
Vital Signs 12/25/23 08:51 Height 5 ft 3 in Weight 169 lb 2 oz BMI 30.0 BP 110/64 Blood Pressure Location Lt brachial Position Sitting Respiration 16 Pulse 81 Pulse Source Pulse Oximeter Temp 97.6 F Temp Source Oral Pulse Oximetry (%) 97 Oxygen Delivery Method Room Air Intake Visit Reasons: CPE Intake Note: patient here for CPE Market Risk Analyst Required: No Is last menstrual period known: Yes Last menstrual period: 12/17/23 Post menopausal: No Allergies Sulfa (Sulfonamide Antibiotics) Allergy (Unknown, Verified 12/25/23 09:01) Unknown Medication List - Last Reconciled 12/25/23 by Lashaun Taylor CNP tirzepatide 2.5 mg subcut QWEEK Tobacco use date assessed: 12/25/23 Dental Screening Dental Screen Date: 12/25/23 Did you have a dental visit in the last 12 months?: Yes Did you have a dental problem in the last 6 months where you did not have access to dental care?: No Was dental information given to patient?: Patient has dentist HPI HPI Comments History of Present Illness Details 47-year-old female presents for an extended physical exam He has past medical history significant for obesity and seasonal depression She started an online weight loss program 4 days ago and was prescribed Tirzepatide 2.5 mg subQ every week for weight management She notes that she has been making healthy lifestyle changes, including exercising. She sleeps well Former smoker. Does not drink alcohol. No recreational drug use Last mammogram/ultrasound/breast biopsy was in 09/2022 with [facility]: No malignancy. She has a f/u appointment next month. Last Pap smear was with [facility] Medical earth science professor in July 2022: normal [facility] Medical History Orthostatic hypotension Seasonal depression Surgical History Hx of colonoscopy H/O breast biopsy Family History (Updated 12/25/23 @ 08:49 by Teresa Jeffries) Father Bladder cancer Prostate cancer Alcohol abuse Maternal Grandmother Breast cancer Alcohol abuse Maternal Grandmother Alcohol abuse Other Substance abuse Social History Household Members: Spouse Housing: House Alcohol intake: former Patient Tobacco Use Status: Former Tobacco user e-Cigarette/Vaping Use: Never Used Special lanette needs: No service: No Current occupational status: employed Current occupation: realtor Current occupational exposures/hazards: Yes Cognitive needs: No Hearing needs: No Vision needs: No Female Reproductive History Menstrual Date of last menstrual period: 12/17/23 Questionnaire PHQ-9 Over the last 2 weeks, how often have you been bothered by any of the following problems? 1. Little interest or pleasure in doing things: not at all 2. Feeling down, depressed, or hopeless: not at all 3. Trouble falling or staying asleep, or sleeping too much: not at all 4. Feeling tired or having little energy: not at all 5. Poor appetite or overeating: not at all 6. Feeling bad about yourself - or that you are a failure or have let yourself or your family down: not at all 7. Trouble concentrating on things, such as reading the newspaper or watching television: not at all 8. Moving or speaking so slowly that other people could have noticed. Or the opposite - being so fidgety or restless that you have been moving around a lot more than usual: not at all 9. Thoughts that you would be better off or of hurting yourself in some way: not at all Total score: 0 Depression Screening Interpretation: Negative Depression Screening Done: Yes 03562 - PHQ-9 Billing: Yes Source: Developed by Drs. Bud Jimenez, Isabel Munoz, Ilan Hamilton and colleagues, with an educational azucena from [employer]. Thrive Questionnaire Date Thrive assessed: 12/25/23 I am a: Patient What is your living situation today?: I have a steady place to live Within the past 12 months, did the food you bought not last and you didn't have the money to get more?: Never true Within the past 12 months, did you worry whether your food would run out before you got money to buy more?: Never true Do you have trouble paying for medicines?: No Do you have trouble getting transportation to medical appointments?: No Do you have trouble paying your heating and electricity bill?: No Do you have trouble taking care of your child, family member or friend?: No Do you have trouble with day-to-day activities such as bathing, preparing meals, shopping, managing finances, etc.?: No Are you currently unemployed and looking for a job?: No Are you interested in more education?: No Please select the resources that you would like help with: None Currently or been in a relationship where the following occur: No concerns reported THRIVE Score: 0 AUDIT C Alcohol Use Questionnaire (AUDIT-C) 1. How often do you have a drink containing alcohol?: Never Total Score: 0 Score Reviewed/Action Taken: Yes NINOSKA-7 AMB Questionnaire NINOSKA-7 Date NINOSKA - 7 assessed: 12/25/23 Feeling nervous, anxious, or on edge: 0 = Not at all Not being able to stop or control worryin = Not at all Worrying too much about different things: 0 = Not at all Trouble relaxin = Not at all Being so restless that it is hard to sit still: 0 = Not at all Becoming easily annoyed or irritable: 0 = Not at all Feeling afraid as if something awful might happen: 0 = Not at all Total NINOSKA-7 score (0-4 normal; 5-9 mild; 10-14 moderate; 15-21 severe): 0 Source: Developed by Drs. Bud Jimenez, Isabel Munoz, Ilan Hamilton and colleagues, with an educational azucena from [employer]. NINOSKA-7 Assessment Billing NINOSKA-7 Assessment Tool: NINOSKA-7 Assessment 00492 ACT Questionnaire In the past 4 weeks, how much of the time did your asthma keep you from getting as much done at work, school or at home?: None of the time During the past 4 weeks, how often have you had shortness of breath?: Not at all During the past 4 weeks, how often did your asthma symptoms wake you up at night or earlier than usual in the morning?: Not at all During the past 4 weeks, how often have you had to use your rescue inhaler or nebulizer medication?: Not at all How would you rate your asthma control during the past 4 weeks?: Completely controlled Score: 25 Review of Systems Const Details: Denies chills, Denies fatigue, Denies fever(s), Denies headache(s) and Denies weakness HEENT Denies change in vision, Denies dizziness, Denies headache(s), Denies hearing loss, Denies nasal congestion, Denies sinus pain, Denies sinus pressure and Denies sore throat Card Denies chest pain, Denies lightheadedness, Denies dyspnea and Denies other (palpitations) Resp Denies cough, Denies dyspnea and Denies wheezing GI Denies abdominal pain, Denies melena, Denies hematochezia, Denies change in bowel habits, Denies dyspepsia and Denies nausea Denies hematuria and Denies dysuria Musc Denies abnormal gait, Denies myalgias, Denies arthralgias, Denies numbness and Denies tingling Skin/Breast Denies rash, Denies unusual bruising and Denies wounds Neuro Denies abnormal gait, Denies dizziness, Denies headache(s), Denies memory loss, Denies numbness, Denies Sensory deficit (Neuro), Denies tingling and Denies weakness Psych Denies anxiety, Denies depression and Denies memory loss Endo Denies cold intolerance, Denies fatigue, Denies heat intolerance, Denies polydipsia and Denies polyuria Saroj/Lymph Denies easy bleeding and Denies easy bruising Aller/Immun Denies wheezing Physical exam (Primary Care) Vital Signs: Last Vital Signs Temp 97.6 F 12/25/23 08:51 Pulse 81 12/25/23 08:51 Resp 16 12/25/23 08:51 BP 110/64 12/25/23 08:51 Pulse Ox 97 12/25/23 08:51 Oxygen Delivery Method Room Air 12/25/23 08:51 BMI result Body Mass Index 30.0 Tobacco/Smoking Status: Tobacco use Status Tobacco use date assessed 12/25/23 12/25/23 08:45 Patient Tobacco Use Status Former Tobacco user 12/25/23 08:45 e-Cigarette/Vaping Use Never Used 12/25/23 08:45 PHQ-9: PHQ-9 Score PHQ-9: Total score 0 12/25/23 08:54 Depression Screening Interpretation: Negative Thrive Assessment: Date of Thrive Assessment Date Thrive assessed 12/25/23 12/25/23 08:54 Currently or been in a relationship where the following occur: No concerns reported Const Other: General: no acute distress, well developed, alert and awake Nutritional Appearance: well nourished Orientation/consciousness: patient oriented x3 HENMT Head: Yes normocephalic and Yes atraumatic Ears: hearing grossly normal bilaterally and TM's normal bilaterally General nose exam: Normal external nose present and Normal nares present Mouth: Normal oral and palatal mucosa present and moist mucous membranes Teeth and gingiva: dentition normal Throat: Yes oropharynx normal Eyes Pupils: Equal, round and reactive pupils present and Pupil accommodation reflex normal EOM: EOMs intact bilaterally Neck Neck: Yes normal visual inspection, Yes no lymphadenopathy and Yes trachea midline Thyroid: Thyroid normal Carotids: no bruits Lymphatic: no lymphadenopathy noted Chest Chest palpation & inspection: normal inspection of the chest Resp Effort & Inspection: normal respiratory effort Auscultation: clear to auscultation bilaterally Cardio Rate: regular rate Rhythm: regular rhythm Heart sounds: S1 normal heart sound present, S2 normal heart sound present, no gallops, no murmurs and no rubs Bruits: no abdominal aortic bruits and no carotid bruits GI Palpation (GI): No Abdominal aortic bruit present, Soft to palpation, nontender, No hepatosplenomegaly present and No Rebound tenderness present Auscultation: normal bowel sounds General: Yes no CVA tenderness Back/Spine/Pelvis Back: no CVA tenderness Cervical Spine: cervical ROM normal and No Cervical spine tenderness Thoracic/Lumbar Spine: thoraco-lumbar ROM normal, No pain with thoraco-lumbar ROM, No thoracic spinal tenderness and No lumbar spinal tenderness Skin General: warm and dry. Normal skin color. Normal skin turgor Lesions: no lesions Rashes: no rashes Trauma: no lacerations or abrasions Wounds: no wounds Nails: normal Neuro General: patient oriented x3, gait normal and CN's II-XI intact bilaterally Cranial nerves: Yes Equal, round and reactive pupils present Cognition (Neuro): normal cognition Gait exam (Neuro): Normal gait present Motor exam (neuro): 5/5 motor strength present throughout Sensory Exam: No Sensory deficit (Neuro) Deep tendon reflexes (DTR's): Right patellar reflex intensity grade: 2+ and Left patellar reflex intensity grade: 2+ Extrem General: Yes normal to inspection, No edema and No calf tenderness Psych Appearance: grossly normal Affect: normal affect Attitude: cooperative Thought process: Normal thought process present Assessment and Plan Assessment & Plan (1) Normal physical examination, routine: Code(s): Z00.00 - Encounter for general adult medical examination without abnormal findings Plan: No significant physical restrictions or limitations noted Continue current treatment regimen Healthy diet and routine exercise encouraged Advised to get lab work done and schedule a telehealth visit for review of lab results Return with symptoms or concerns Verbalized understanding and agreed with the treatment plan (2) Obesity (BMI 30.0-34.9): Code(s): E66.9 - Obesity, unspecified Plan: She currently weighs 169 lb, BMI is 30.0 Healthy diet and routine exercise encouraged She is followed by an online weight management program (3) Laboratory tests ordered as part of a complete physical exam (CPE): Code(s): Z00.00 - Encounter for general adult medical examination without abnormal findings Plan: Fasting labs ordered as part of a complete physical exam. Advised to fast for at least 10 hours before getting labs drawn. May drink water Verbalized understanding and agreed with treatment plan. Orders: Orders Comprehensive [place]. Panel Fast Today Z00.00 - Encounter for general adult medical examination without abnormal findings Lipid Panel Today Z00.00 - Encounter for general adult medical examination without abnormal findings UA CC w/rflx Micro + Cult Today Z00.00 - Encounter for general adult medical examination without abnormal findings Microalbumin, Random (w Creat) Today Z00.00 - Encounter for general adult medical examination without abnormal findings Complete Blood Count no Diff Today Z00.00 - Encounter for general adult medical examination without abnormal findings TSH reflex Free T4 Today Z00.00 - Encounter for general adult medical examination without abnormal findings Coding Level of Care Code Est Pt Prev Care 40-64y(74781) Diagnoses Normal physical examination, routine Z00.00 Obesity (BMI 30.0-34.9) E66.9 Laboratory tests ordered as part of a complete physical exam (CPE) Z00.00 Additional Codes NINOSKA-7 Assessment Billing - NINOSKA-7 Assessment Tool: NINOSKA-7 Assessment 74282 ([id number])
[2023-12-25 08:51] VITALS: BP 110/64; PULSE 81; RESP 16; TEMP 36.4; O2SAT 97
== END 2023-12-25 09:19 | disposition home or self-care (01) ==
PROVIDERS: PCP Nurse Practitioner Family; Visit Provider Nurse Practitioner Family
DX: Z00.00 Encounter for general adult medical examination without abnormal findings (principal); E66.9 Obesity, unspecified; Z68.30 Body mass index [BMI] 30.0-30.9, adult
CPT/HCPCS: 99396